=== PATIENT | male | born 1990 | race African-American/Black ===

== ENCOUNTER 2021-02-20 17:01 | Inpatient (IN) | payer OTHER ==
[~2021-02-20] VITALS: Ht 175.3 cm; Wt 89.1 kg
[2021-02-20 17:55] LABS: Basophils # (auto) 0 10 ^3/uL (0-0.2); Basophils % (auto) 0.4 % (0.0-2.0); Eosinophils # (auto) 0.1 10 ^3/uL (0-0.8); Eosinophils % (auto) 0.8 % (0.0-7.0); Hematocrit 42.3 % (41.0-53.0); Hemoglobin 14.4 g/dL (13.5-17.5); Lymphocytes # (auto) 1.3 10 ^3/uL (0.4-5.4); Lymphocytes % (auto) 19.5 % (10.0-50.0); Mean Corpuscular Hemoglobin 28.8 pg (28.0-32.0); Mean Corpuscular Volume 84.9 fL (80.0-100.0); Monocytes # (auto) 0.7 10 ^3/uL (0-1.3); Monocytes % (auto) 9.9 % (0.0-12.0); Neutrophils # (auto) 4.7 10 ^3/uL (1.6-8.6); Neutrophils % (auto) 69.4 % (37.0-80.0); Red Blood Cells 4.99 10^6/uL (4.5-5.90); Red Cell Distribution Width 13.3 % (11.8-14.3); White Blood Cell 6.8 10^3/uL (4.4-10.8)
[2021-02-20 18:19] LABS: Calcium 8.6 mg/dL (8.5-10.1)
[2021-02-20 18:23] LABS: BUN/Creatinine Ratio 10.2; Bilirubin, Total 0.5 mg/dL (0.2-1.0); Total Protein 7.5 g/dL (6.4-8.2)
[2021-02-20 18:32] LABS: INR 2.8 (0.9-1.15)
[2021-02-20 19:42] LABS: Urine WBC None Seen /hpf (0 - 3)
[2021-02-20] MEDS ORDERED: MORPHINE SULFATE INJECTION 2 MG/ML SYRG IV ONE (19:45)
[2021-02-20] MEDS ORDERED: ONDANSETRON HCL 4 MG/2 ML VIAL IV ONE (19:45)
[2021-02-20 20:18] LABS: Urine Bacteria NONE SEEN /hpf (None Seen); Urine Blood Negative /uL (Negative); Urine Specific Gravity 1.017 (1.001-1.035)
[2021-02-20] MEDS ORDERED: HYDROmorphone HCL 2 MG/ML VL IV PRN (22:00)
[2021-02-20] MEDS ORDERED: ONDANSETRON HCL 4 MG/2 ML VIAL IV PRN (22:00)
[2021-02-20] MEDS ORDERED: HYDROcodone-ACET 5/325MG TAB PO PRN (22:00)
[2021-02-20] MEDS ORDERED: HEPARIN DRIP/D5W 100UNITS/ML 250 ML IV SCH (22:15)
[2021-02-20] MEDS ORDERED: HEPARIN SODIUM (PORCINE) 5000 UNITS/ML 1ML VIAL IV ONE (22:15)
[2021-02-20 23:30] VITALS: BP 110/66
[2021-02-20] MEDS ORDERED: MORPHINE SULFATE INJECTION 2 MG/ML SYRG IV PRN (23:30)
[2021-02-20] MEDS ORDERED: NITROGLYCERIN 0.4 MG SL TAB SL PRN (23:30)
[2021-02-20 23:53] VITALS: BP 110/66
[2021-02-21] MEDS: HYDROcodone-ACET 5/325MG TAB PO PRN ×3 (00:21→18:31)
[2021-02-21] MEDS ORDERED: WARF1TAB36 PO (03:42)
[2021-02-21 05:26] LABS: Basophils # (auto) 0 10 ^3/uL (0-0.2); Basophils % (auto) 0.7 % (0.0-2.0); Eosinophils # (auto) 0.1 10 ^3/uL (0-0.8); Eosinophils % (auto) 1.9 % (0.0-7.0); Hematocrit 40.8 % (41.0-53.0); Hemoglobin 13.8 g/dL (13.5-17.5); Lymphocytes # (auto) 2.1 10 ^3/uL (0.4-5.4); Lymphocytes % (auto) 39.4 % (10.0-50.0); Mean Corpuscular Hemoglobin 29.1 pg (28.0-32.0); Mean Corpuscular Hgb Conc. 33.9 g/dL (32.0-36.0); Mean Corpuscular Volume 85.8 fL (80.0-100.0); Monocytes # (auto) 0.6 10 ^3/uL (0-1.3); Monocytes % (auto) 11.1 % (0.0-12.0); Neutrophils # (auto) 2.5 10 ^3/uL (1.6-8.6); Neutrophils % (auto) 46.9 % (37.0-80.0); Nucleated Red Blood Cells % 0.1 %; Red Blood Cells 4.75 10^6/uL (4.5-5.90); Red Cell Distribution Width 12.9 % (11.8-14.3); White Blood Cell 5.4 10^3/uL (4.4-10.8)
[2021-02-21 05:34] VITALS: BP 103/60
[2021-02-21 06:42] LABS: Partial Thromboplastin Time > 139.0 sec (23.0-31.2)
[2021-02-21 09:01] VITALS: BP 99/64
[2021-02-21] MEDS: PANTOPRAZOLE 40 MG TAB PO SCH ×2 (09:31→22:29)
[2021-02-21] MEDS ORDERED: PANTOPRAZOLE 40 MG TAB PO SCH (10:00)
[2021-02-21 13:00] VITALS: BP 9/60
[2021-02-21 14:30] LABS: INR 2.11 (0.9-1.15)
[2021-02-21 14:31] LABS: Partial Thromboplastin Time 100.3 sec (23.0-31.2)
[2021-02-21] MEDS: HYDROmorphone HCL 2 MG/ML VL IV PRN ×2 (15:26→20:47)
[2021-02-21] MEDS ORDERED: HEPARIN DRIP/D5W 100UNITS/ML 250 ML IV SCH ×2 (15:30→22:30)
[2021-02-21 17:16] VITALS: BP 114/71
[2021-02-21 22:00] VITALS: BP 108/68
[2021-02-21 22:01] LABS: INR 1.88 (0.9-1.15); Partial Thromboplastin Time 49.1 sec (23.0-31.2)
[2021-02-22] MEDS: HYDROmorphone HCL 2 MG/ML VL IV PRN ×5 (01:00→22:17)
[2021-02-22 05:00] VITALS: BP 108/72
[2021-02-22 06:43] LABS: Basophils # (auto) 0 10 ^3/uL (0-0.2); Basophils % (auto) 0.4 % (0.0-2.0); Eosinophils # (auto) 0.1 10 ^3/uL (0-0.8); Hematocrit 40.6 % (41.0-53.0); Hemoglobin 13.9 g/dL (13.5-17.5); Lymphocytes # (auto) 1.1 10 ^3/uL (0.4-5.4); Lymphocytes % (auto) 17.7 % (10.0-50.0); Mean Corpuscular Hemoglobin 29.4 pg (28.0-32.0); Mean Corpuscular Hgb Conc. 34.1 g/dL (32.0-36.0); Monocytes # (auto) 0.9 10 ^3/uL (0-1.3); Monocytes % (auto) 13.8 % (0.0-12.0); Neutrophils # (auto) 4.2 10 ^3/uL (1.6-8.6); Neutrophils % (auto) 67.1 % (37.0-80.0); Nucleated Red Blood Cells % 0.1 %; Red Blood Cells 4.72 10^6/uL (4.5-5.90); White Blood Cell 6.2 10^3/uL (4.4-10.8)
[2021-02-22 06:51] LABS: Albumin 3.7 g/dL (3.4-5.0); Potassium 3.8 mmol/L (3.5-5.1)
[2021-02-22 06:56] LABS: BUN/Creatinine Ratio 8.9; Bilirubin, Total 0.8 mg/dL (0.2-1.0); Total Protein 7.3 g/dL (6.4-8.2)
[2021-02-22] MEDS: PANTOPRAZOLE 40 MG TAB PO SCH ×2 (07:48→22:17)
[2021-02-22 08:00] VITALS: BP 118/72
[2021-02-22 08:11] LABS: INR 1.62 (0.9-1.15); Partial Thromboplastin Time 31.9 sec (23.0-31.2)
[2021-02-22 09:04] VITALS: BP 118/72
[2021-02-22 13:00] VITALS: BP 113/57
[2021-02-22 17:00] VITALS: BP 122/63
[2021-02-22 22:00] VITALS: BP 101/69
[2021-02-23] MEDS: HYDROmorphone HCL 2 MG/ML VL IV PRN ×2 (03:31→08:28)
[2021-02-23 05:00] VITALS: BP 104/61
[2021-02-23] MEDS ORDERED: INFLUENZA QUAD 2020-2021 0.5 ML SYRG IM ONE (06:45)
[2021-02-23 08:18] VITALS: BP 100/58
[2021-02-23] MEDS: ONDANSETRON HCL 4 MG/2 ML VIAL IV PRN (08:37)
[2021-02-23] MEDS: PANTOPRAZOLE 40 MG TAB PO SCH ×2 (09:47→21:04)
[2021-02-23 12:28] VITALS: BP 111/58
[2021-02-23] MEDS ORDERED: HYDROcodone-ACET 5/325MG TAB PO PRN (16:30)
[2021-02-23 16:38] VITALS: BP 109/69
[2021-02-23] MEDS: OXYCODONE W/ ACETAMINOPHEN 5/325MG TABLET PO PRN (20:50)
[2021-02-23 22:27] VITALS: BP 103/71
[2021-02-24 05:00] VITALS: BP 101/60
[2021-02-24 07:18] LABS: Basophils # (auto) 0 10 ^3/uL (0-0.2); Basophils % (auto) 0.4 % (0.0-2.0); Eosinophils # (auto) 0.1 10 ^3/uL (0-0.8); Eosinophils % (auto) 2.3 % (0.0-7.0); Hematocrit 38.8 % (41.0-53.0); Hemoglobin 13.3 g/dL (13.5-17.5); Lymphocytes # (auto) 1.3 10 ^3/uL (0.4-5.4); Lymphocytes % (auto) 29.6 % (10.0-50.0); Mean Corpuscular Hemoglobin 29.1 pg (28.0-32.0); Mean Corpuscular Hgb Conc. 34.4 g/dL (32.0-36.0); Mean Corpuscular Volume 84.7 fL (80.0-100.0); Monocytes # (auto) 0.6 10 ^3/uL (0-1.3); Monocytes % (auto) 14.6 % (0.0-12.0); Neutrophils # (auto) 2.4 10 ^3/uL (1.6-8.6); Neutrophils % (auto) 53.1 % (37.0-80.0); Nucleated Red Blood Cells % 0.2 %; Red Blood Cells 4.58 10^6/uL (4.5-5.90); Red Cell Distribution Width 12.6 % (11.8-14.3); White Blood Cell 4.4 10^3/uL (4.4-10.8)
[2021-02-24] MEDS: OXYCODONE W/ ACETAMINOPHEN 5/325MG TABLET PO PRN ×3 (08:37→21:34)
[2021-02-24 09:00] VITALS: BP 97/66
[2021-02-24] MEDS: PANTOPRAZOLE 40 MG TAB PO SCH ×2 (10:21→21:34)
[2021-02-24] MEDS: ONDANSETRON HCL 4 MG/2 ML VIAL IV PRN (19:46)
[2021-02-24 22:00] VITALS: BP 101/63
[2021-02-25 05:00] VITALS: BP 101/57
[2021-02-25 09:00] VITALS: BP 105/58
[2021-02-25] MEDS: PANTOPRAZOLE 40 MG TAB PO SCH ×2 (09:24→21:01)
[2021-02-25] MEDS: OXYCODONE W/ ACETAMINOPHEN 5/325MG TABLET PO PRN ×3 (11:06→21:00)
[2021-02-25 13:00] VITALS: BP 106/60
[2021-02-25] MEDS: MORPHINE SULFATE 4 MG/ML SYR/VIAL IV PRN ×2 (14:11→23:04)
[2021-02-25 17:00] VITALS: BP 113/61
[2021-02-25] MEDS: LACTULOSE 20Gm/30ML SOLN PO SCH ×2 (17:08→23:50)
[2021-02-25 21:27] VITALS: BP 112/77
[2021-02-26 04:54] VITALS: BP 134/68
[2021-02-26] MEDS: LACTULOSE 20Gm/30ML SOLN PO SCH ×4 (06:32→18:00)
[2021-02-26] MEDS ORDERED: HEPARIN SODIUM (PORCINE) 5000 UNITS/ML 1ML VIAL IV ONE (08:30)
[2021-02-26 09:00] VITALS: BP 102/64
[2021-02-26 09:15] LABS: Basophils # (auto) 0 10 ^3/uL (0-0.2); Basophils % (auto) 0.2 % (0.0-2.0); Eosinophils # (auto) 0.1 10 ^3/uL (0-0.8); Eosinophils % (auto) 1.4 % (0.0-7.0); Hematocrit 39.3 % (41.0-53.0); Hemoglobin 13.2 g/dL (13.5-17.5); Lymphocytes # (auto) 0.9 10 ^3/uL (0.4-5.4); Lymphocytes % (auto) 15.2 % (10.0-50.0); Mean Corpuscular Hemoglobin 28.5 pg (28.0-32.0); Mean Corpuscular Hgb Conc. 33.5 g/dL (32.0-36.0); Mean Corpuscular Volume 85.1 fL (80.0-100.0); Monocytes # (auto) 0.6 10 ^3/uL (0-1.3); Neutrophils # (auto) 4.6 10 ^3/uL (1.6-8.6); Neutrophils % (auto) 73.2 % (37.0-80.0); Nucleated Red Blood Cells % 0.2 %; Red Blood Cells 4.62 10^6/uL (4.5-5.90); Red Cell Distribution Width 12.7 % (11.8-14.3); White Blood Cell 6.2 10^3/uL (4.4-10.8)
[2021-02-26] MEDS: PANTOPRAZOLE 40 MG TAB PO SCH ×2 (09:34→21:38)
[2021-02-26 09:35] LABS: INR 1.08 (0.9-1.15); Partial Thromboplastin Time 23.3 sec (23.0-31.2)
[2021-02-26] MEDS: HEPARIN DRIP/D5W 100UNITS/ML 250 ML IV SCH (10:10)
[2021-02-26] MEDS: ONDANSETRON HCL 4 MG/2 ML VIAL IV PRN (12:13)
[2021-02-26 12:43] VITALS: BP 95/50
[2021-02-26 16:54] LABS: INR 1.08 (0.9-1.15); Partial Thromboplastin Time 50.3 sec (23.0-31.2)
[2021-02-26 17:00] VITALS: BP 95/56
[2021-02-26] MEDS: OXYCODONE W/ ACETAMINOPHEN 5/325MG TABLET PO PRN (21:38)
[2021-02-26] MEDS: MORPHINE SULFATE 4 MG/ML SYR/VIAL IV PRN (21:49)
[2021-02-26 22:40] VITALS: BP 125/58
[2021-02-26 22:55] LABS: INR 1.13 (0.9-1.15); Partial Thromboplastin Time 51.4 sec (23.0-31.2)
[2021-02-27] MEDS: HEPARIN DRIP/D5W 100UNITS/ML 250 ML IV SCH ×3 (00:48→18:39)
[2021-02-27 05:23] VITALS: BP 110/67
[2021-02-27] MEDS: LACTULOSE 20Gm/30ML SOLN PO SCH ×5 (05:30→23:59)
[2021-02-27 08:47] VITALS: BP 98/56
[2021-02-27 09:04] LABS: INR 1.14 (0.9-1.15)
[2021-02-27 09:06] LABS: Partial Thromboplastin Time 77.7 sec (23.0-31.2)
[2021-02-27] MEDS: PANTOPRAZOLE 40 MG TAB PO SCH ×2 (10:00→21:57)
[2021-02-27 12:36] VITALS: BP 106/64
[2021-02-27 14:08] LABS: Basophils # (auto) 0.1 10 ^3/uL (0-0.2); Basophils % (auto) 0.9 % (0.0-2.0); Eosinophils # (auto) 0.1 10 ^3/uL (0-0.8); Eosinophils % (auto) 1.2 % (0.0-7.0); Hematocrit 38.5 % (41.0-53.0); Hemoglobin 13.3 g/dL (13.5-17.5); Lymphocytes # (auto) 1.9 10 ^3/uL (0.4-5.4); Lymphocytes % (auto) 29.9 % (10.0-50.0); Mean Corpuscular Hemoglobin 29.4 pg (28.0-32.0); Mean Corpuscular Hgb Conc. 34.6 g/dL (32.0-36.0); Monocytes # (auto) 0.6 10 ^3/uL (0-1.3); Monocytes % (auto) 9.9 % (0.0-12.0); Neutrophils # (auto) 3.7 10 ^3/uL (1.6-8.6); Neutrophils % (auto) 58.1 % (37.0-80.0); Nucleated Red Blood Cells % 0.2 %; Red Blood Cells 4.53 10^6/uL (4.5-5.90); Red Cell Distribution Width 12.9 % (11.8-14.3); White Blood Cell 6.4 10^3/uL (4.4-10.8)
[2021-02-27 14:21] LABS: INR 1.1 (0.9-1.15); Partial Thromboplastin Time 60.2 sec (23.0-31.2)
[2021-02-27] MEDS: MORPHINE SULFATE 4 MG/ML SYR/VIAL IV PRN ×2 (15:21→21:57)
[2021-02-27 16:38] VITALS: BP 108/61
[2021-02-27 21:57] LABS: INR 1.1 (0.9-1.15); Partial Thromboplastin Time 53.1 sec (23.0-31.2)
[2021-02-27 22:00] VITALS: BP 105/63
[2021-02-28 02:17] LABS: Basophils # (auto) 0.1 10 ^3/uL (0-0.2); Basophils % (auto) 1.8 % (0.0-2.0); Eosinophils # (auto) 0.1 10 ^3/uL (0-0.8); Hematocrit 36.6 % (41.0-53.0); Hemoglobin 12.5 g/dL (13.5-17.5); Lymphocytes % (auto) 34.2 % (10.0-50.0); Mean Corpuscular Hemoglobin 28.9 pg (28.0-32.0); Mean Corpuscular Hgb Conc. 34.2 g/dL (32.0-36.0); Mean Corpuscular Volume 84.4 fL (80.0-100.0); Monocytes # (auto) 0.7 10 ^3/uL (0-1.3); Monocytes % (auto) 11.4 % (0.0-12.0); Neutrophils # (auto) 2.9 10 ^3/uL (1.6-8.6); Neutrophils % (auto) 50.6 % (37.0-80.0); Nucleated Red Blood Cells % 0.2 %; Red Blood Cells 4.33 10^6/uL (4.5-5.90); Red Cell Distribution Width 12.8 % (11.8-14.3); White Blood Cell 5.7 10^3/uL (4.4-10.8)
[2021-02-28 02:32] LABS: INR 1.1 (0.9-1.15); Partial Thromboplastin Time 56.9 sec (23.0-31.2)
[2021-02-28 05:00] VITALS: BP 94/56
[2021-02-28] MEDS: LACTULOSE 20Gm/30ML SOLN PO SCH ×4 (06:00→23:56)
[2021-02-28 07:50] VITALS: BP 95/58
[2021-02-28 08:49] VITALS: BP 95/58
[2021-02-28] MEDS: PANTOPRAZOLE 40 MG TAB PO SCH ×2 (10:39→22:29)
[2021-02-28 12:23] VITALS: BP 97/61
[2021-02-28] MEDS: HEPARIN DRIP/D5W 100UNITS/ML 250 ML IV SCH (14:22)
[2021-02-28 16:37] VITALS: BP 94/65
[2021-02-28] MEDS: MORPHINE SULFATE 4 MG/ML SYR/VIAL IV PRN (19:27)
[2021-02-28 21:09] VITALS: BP 103/57
[2021-03-01 02:54] LABS: INR 1.11 (0.9-1.15); Partial Thromboplastin Time 53.5 sec (23.0-31.2)
[2021-03-01 05:12] VITALS: BP 97/61
[2021-03-01] MEDS: LACTULOSE 20Gm/30ML SOLN PO SCH ×4 (06:00→23:45)
[2021-03-01 08:00] VITALS: BP 91/53
[2021-03-01] MEDS: PANTOPRAZOLE 40 MG TAB PO SCH ×2 (10:13→21:09)
[2021-03-01] MEDS: HEPARIN DRIP/D5W 100UNITS/ML 250 ML IV SCH (10:18)
[2021-03-01 12:00] VITALS: BP 94/54
[2021-03-01 16:00] VITALS: BP 110/61
[2021-03-01] MEDS: MORPHINE SULFATE 4 MG/ML SYR/VIAL IV PRN (20:33)
[2021-03-01 22:00] VITALS: BP 112/73
[2021-03-02] VITALS (7 sets, daily range): BP systolic 97–109; BP diastolic 56–70
[2021-03-02 02:50] LABS: INR 1.12 (0.9-1.15); Partial Thromboplastin Time 50.4 sec (23.0-31.2)
[2021-03-02] MEDS: LACTULOSE 20Gm/30ML SOLN PO SCH (06:00)
[2021-03-02] MEDS: HEPARIN DRIP/D5W 100UNITS/ML 250 ML IV SCH (06:06)
[2021-03-02] MEDS: MORPHINE SULFATE 4 MG/ML SYR/VIAL IV PRN ×3 (08:39→21:03)
[2021-03-02] MEDS: PANTOPRAZOLE 40 MG TAB PO SCH ×2 (10:29→21:43)
[2021-03-02] MEDS ORDERED: LACTULOSE 20Gm/30ML SOLN PO PRN ×2 (12:15→12:30)
[2021-03-02] MEDS: OXYCODONE W/ ACETAMINOPHEN 5/325MG TABLET PO PRN (23:35)
[2021-03-03] MEDS: MORPHINE SULFATE 4 MG/ML SYR/VIAL IV PRN ×3 (02:07→08:51)
[2021-03-03 02:57] LABS: INR 1.13 (0.9-1.15); Partial Thromboplastin Time 55.7 sec (23.0-31.2)
[2021-03-03] MEDS: HEPARIN DRIP/D5W 100UNITS/ML 250 ML IV SCH ×2 (03:15→08:48)
[2021-03-03 05:00] VITALS: BP 110/68
[2021-03-03] MEDS: PANTOPRAZOLE 40 MG TAB PO SCH ×2 (08:50→22:01)
[2021-03-03 09:00] VITALS: BP 110/69
[2021-03-03 13:00] VITALS: BP 120/65
[2021-03-03] MEDS: OXYCODONE W/ ACETAMINOPHEN 5/325MG TABLET PO PRN ×3 (13:47→22:01)
[2021-03-03 17:00] VITALS: BP 121/54
[2021-03-03] MEDS ORDERED: WARFARIN SODIUM 2.5 MG TAB PO ONE (17:00)
[2021-03-03 17:04] VITALS: BP 121/54
[2021-03-03 22:15] VITALS: BP 105/56
[2021-03-04 02:25] LABS: INR 1.12 (0.9-1.15); Partial Thromboplastin Time 52.2 sec (23.0-31.2)
[2021-03-04 05:11] VITALS: BP 103/56
[2021-03-04 09:00] VITALS: BP 95/64
[2021-03-04] MEDS: OXYCODONE W/ ACETAMINOPHEN 5/325MG TABLET PO PRN ×3 (09:23→21:55)
[2021-03-04] MEDS: PANTOPRAZOLE 40 MG TAB PO SCH ×2 (09:23→21:55)
[2021-03-04] MEDS: HEPARIN DRIP/D5W 100UNITS/ML 250 ML IV SCH ×2 (12:01→20:29)
[2021-03-04 14:59] VITALS: BP 95/64
[2021-03-04] MEDS ORDERED: WARFARIN SODIUM 10 MG TAB PO ONE (17:00)
[2021-03-04 17:11] VITALS: BP 114/61
[2021-03-04 21:52] VITALS: BP 104/73
[2021-03-05 04:35] VITALS: BP 111/62
[2021-03-05 05:43] LABS: Basophils # (auto) 0 10 ^3/uL (0-0.2); Basophils % (auto) 0.8 % (0.0-2.0); Eosinophils # (auto) 0.1 10 ^3/uL (0-0.8); Eosinophils % (auto) 1.8 % (0.0-7.0); Hematocrit 37.8 % (41.0-53.0); Hemoglobin 13.4 g/dL (13.5-17.5); Lymphocytes # (auto) 1.8 10 ^3/uL (0.4-5.4); Lymphocytes % (auto) 40.8 % (10.0-50.0); Mean Corpuscular Hemoglobin 29.9 pg (28.0-32.0); Mean Corpuscular Hgb Conc. 35.4 g/dL (32.0-36.0); Mean Corpuscular Volume 84.5 fL (80.0-100.0); Monocytes # (auto) 0.5 10 ^3/uL (0-1.3); Monocytes % (auto) 10.1 % (0.0-12.0); Neutrophils # (auto) 2.1 10 ^3/uL (1.6-8.6); Neutrophils % (auto) 46.5 % (37.0-80.0); Nucleated Red Blood Cells % 0.2 %; Red Blood Cells 4.47 10^6/uL (4.5-5.90); Red Cell Distribution Width 13.1 % (11.8-14.3); White Blood Cell 4.5 10^3/uL (4.4-10.8)
[2021-03-05 05:59] LABS: INR 1.16 (0.9-1.15); Partial Thromboplastin Time 57.4 sec (23.0-31.2)
[2021-03-05] MEDS ORDERED: HEPARIN DRIP/D5W 100UNITS/ML 250 ML IV SCH (07:00)
[2021-03-05 09:00] VITALS: BP 101/64
[2021-03-05] MEDS: PANTOPRAZOLE 40 MG TAB PO SCH (09:37)
== END 2021-03-05 12:05 | disposition left against medical advice (07) | DRG 605 ==
LOC: EDBD 17:01 → ER 17:01 → EEVIPCON 17:01 → OVERFLOW 22:04 → EDBD 22:04 → WEST WING 23:15
PROVIDERS: ADMIT Specialist; ATTEND Internal Medicine
DX: S80.11XA Contusion of right lower leg, initial encounter (principal); D68.59 Other primary thrombophilia; D68.51 Activated protein C resistance; S70.11XA Contusion of right thigh, initial encounter; F17.200 Nicotine dependence, unspecified, uncomplicated; Z20.822 Contact with and (suspected) exposure to COVID-19; Z53.29 Procedure and treatment not carried out because of patient's decision for other reasons; K59.00 Constipation, unspecified; X58.XXXA Exposure to other specified factors, initial encounter; Z83.2 Family history of diseases of the blood and blood-forming organs and certain disorders involving the immune mechanism; Z79.01 Long term (current) use of anticoagulants; Z91.013 Allergy to seafood; Z88.8 Allergy status to other drugs, medicaments and biological substances; Z86.711 Personal history of pulmonary embolism; Z86.718 Personal history of other venous thrombosis and embolism; Z86.72 Personal history of thrombophlebitis; Y93.89 Activity, other specified; Y92.89 Other specified places as the place of occurrence of the external cause; Y99.8 Other external cause status
CPT/HCPCS: 36415; 73700; 73718; 78582; 80053; 81001; 81241; 83735; 85025; 85301; 85302; 85305; 85306; 85379; 85610; 85730; 86147; 87081; 87426; 93005; 93970; 93971; 96374; 96375; G0378; J2405

== ENCOUNTER 2021-06-19 15:06 | Emergency (ER) | payer OTHER ==
[~2021-06-19] VITALS: Ht 175.3 cm; Wt 74.8 kg
[~2021-06-19 15:06] MED LIST: WARF1TAB36 PO
[2021-06-19 15:11] VITALS: BP 143/94
[2021-06-19 15:33] LABS: Basophils # (auto) 0 10 ^3/uL (0-0.2); Basophils % (auto) 0.5 % (0.0-2.0); Eosinophils # (auto) 0.1 10 ^3/uL (0-0.8); Eosinophils % (auto) 1.6 % (0.0-7.0); Hematocrit 48.9 % (41.0-53.0); Hemoglobin 16.6 g/dL (13.5-17.5); Lymphocytes # (auto) 1.6 10 ^3/uL (0.4-5.4); Lymphocytes % (auto) 43.8 % (10.0-50.0); Mean Corpuscular Volume 82.3 fL (80.0-100.0); Monocytes # (auto) 0.4 10 ^3/uL (0-1.3); Monocytes % (auto) 9.6 % (0.0-12.0); Neutrophils # (auto) 1.7 10 ^3/uL (1.6-8.6); Neutrophils % (auto) 44.5 % (37.0-80.0); Nucleated Red Blood Cells % 0.2 %; Red Blood Cells 5.95 10^6/uL (4.5-5.90); Red Cell Distribution Width 13.1 % (11.8-14.3); White Blood Cell 3.7 10^3/uL (4.4-10.8)
[2021-06-19 15:46] LABS: Albumin 4.1 g/dL (3.4-5.0); Calcium 8.7 mg/dL (8.5-10.1); INR 1.95 (0.9-1.15); Partial Thromboplastin Time 34.6 sec (23.6-33.0); Potassium 3.9 mmol/L (3.5-5.1)
[2021-06-19 15:49] LABS: BUN/Creatinine Ratio 9.5; Bilirubin, Total 0.7 mg/dL (0.2-1.0)
== END 2021-06-19 23:00 | disposition home or self-care (01) ==
LOC: EDBD 15:06 → ER 15:06 → EEVIPCON 15:06 → ER 21:58
DX: M79.651 Pain in right thigh (principal); R22.41 Localized swelling, mass and lump, right lower limb; Z86.73 Personal history of transient ischemic attack (TIA), and cerebral infarction without residual deficits; Z91.013 Allergy to seafood; Z88.6 Allergy status to analgesic agent; Z79.84 Long term (current) use of oral hypoglycemic drugs; Z20.822 Contact with and (suspected) exposure to COVID-19
CPT/HCPCS: 36415; 80053; 85025; 85610; 85730; 87426; 93971